=== PATIENT | male | born 1955 | race Caucasian/White ===

== ENCOUNTER 2020-03-27 18:42 | Inpatient (IN) | payer BC, OTHER ==
[2020-03-27] MEDS ORDERED: cefTRIAXone IN SWFI 1,000 MG/10 ML SYRINGE IVP STA (19:11)
[2020-03-27] MEDS ORDERED: SODIUM CHLORIDE 0.9% 500 ML 500 ML IV STA (19:11)
[2020-03-27] MEDS ORDERED: ACETAMINOPHEN TAB 500 MG TAB PO STA (19:13)
--- NOTE | 2020-03-27 19:18 | ED ---
General Adult HPI - General Chief complaint: Skin/Abscess/Foreign Body Stated complaint: cellulitis Time Seen by Provider: 03/27/20 19:02 Source: patient, RN notes reviewed Mode of arrival: ambulatory Limitations: no limitations - History of Present Illness Initial comments: 64-year-old male with a past medical history of cellulitis, diabetes mellitus p resents to the emergency room for a chief complaint of left leg swelling. Patient states he has redness and swelling that he is noticed to the left leg. States he noticed this yesterday when he was standing in his leg felt heavy her than normal. Patient states it reminds him of a previous bout of cellulitis that he required admission for. Patient reports that he has also done 3 different 6-7 [address] drives in the past week as he just moved to the area.he denies any history of DVT. He denies any shortness of breath. Denies any chest pain. Patient does admit to having a history of IDDM. Patient has no other complaints at this time including shortness of breath, chest pain, abdominal pain, nausea or vomiting, headache, or visual changes. - Related Data Allergies Allergy/AdvReac Type Severity Reaction Status Date / Time No Known Allergies Allergy Verified 03/27/20 21:38 Review of Systems ROS Statement: Those systems with pertinent positive or pertinent negative responses have been documented in the HPI. ROS Other: All systems not noted in ROS Statement are negative. Past Medical History Past Medical History: Diabetes Mellitus Additional Past Medical History / Comment(s): lt cellulitis History of Any Multi-Drug Resistant Organisms: None Reported Past Surgical History: Joint Replacement Additional Past Surgical History / Comment(s): channing hip 09/24, carpal tunnel Past Psychological History: No Psychological Hx Reported Smoking Status: Never smoker Past Alcohol Use History: None Reported Past Drug Use History: None Reported General Exam Limitations: no limitations General appearance: alert, in no apparent distress Head exam: Present: atraumatic, normocephalic, normal inspection Eye exam: Present: normal appearance, PERRL, EOMI. Absent: scleral icterus, conjunctival injection, periorbital swelling ENT exam: Present: normal exam, mucous membranes moist Neck exam: Present: normal inspection, full ROM Respiratory exam: Present: normal lung sounds bilaterally. Absent: respiratory distress, wheezes, rales, rhonchi, stridor Cardiovascular Exam: Present: regular rate, normal rhythm, normal heart sounds. Absent: systolic murmur, diastolic murmur, rubs, gallop, clicks GI/Abdominal exam: Present: soft, normal bowel sounds. Absent: distended, tenderness, guarding, rebound, rigid Extremities exam: Present: other (Patient has erythema and edema noted to the left lower leg extending from the ankle up to the proximal tib-fib area. It is warm to touch. DP pulses 2+. Capillary refills less than 2 seconds. Sensation is intact.) Course Vital Signs 03/27/20 03/27/20 03/27/20 18:50 20:51 21:22 Temperature 100.4 F H 98.9 F Pulse Rate 108 H 90 Respiratory 20 18 Rate Blood Pressure 145/86 120/84 O2 Sat by Pulse 96 96 Oximetry Medical Decision Making - Medical Decision Making Patient febrile with a fever of 100.4. Tachycardic 108. Patient has a very erythematous edematous left lower leg. Neurovascular status is intact. CBC unremarkable. However CRP is elevated at 85. Patient is dehydrated and hyperglycemic. He does take insulin at home. X-ray of the tib-fib is negative. No evidence of blood clot on ultrasound. Patient very concerned that the last time he had this oral antibiotics did not work and he required admission with IV antibiotics for several days. At this time given fever and diabetes patient will be admitted. - Lab Data Result diagrams: 03/27/20 19:30 03/27/20 19:30 Lab Results 03/27/20 03/27/20 03/27/20 Range/Units 19:30 19:30 19:30 WBC 5.2 (3.8-10.6) k/uL RBC 5.23 (4.30-5.90) m/uL Hgb 13.9 (13.0-17.5) gm/dL Hct 42.0 (39.0-53.0) % MCV 80.4 (80.0-100.0) fL MCH 26.7 (25.0-35.0) pg MCHC 33.2 (31.0-37.0) g/dL RDW 12.6 (11.5-15.5) % Plt Count 272 (150-450) k/uL Neutrophils % (Manual) 66 % Lymphocytes % (Manual) 25 % Monocytes % (Manual) 8 % Eosinophils % (Manual) 1 % Neutrophils # (Manual) 3.43 (1.3-7.7) k/uL Lymphocytes # (Manual) 1.30 (1.0-4.8) k/uL Monocytes # (Manual) 0.42 (0-1.0) k/uL Eosinophils # (Manual) 0.05 (0-0.7) k/uL Nucleated RBCs 0 (0-0) /100 WBC Manual Slide Review Performed Sodium 132 L (137-145) mmol/L Potassium 4.0 (3.5-5.1) mmol/L Chloride 100 (98-107) mmol/L Carbon Dioxide 21 L (22-30) mmol/L Anion Gap 11 mmol/L BUN 24 H (9-20) mg/dL Creatinine 1.02 (0.66-1.25) mg/dL Est GFR (CKD-EPI)AfAm >90 (>60 ml/min/1.73 sqM) Est GFR (CKD-EPI)NonAf 78 (>60 ml/min/1.73 sqM) Glucose 362 H (74-99) mg/dL Plasma Lactic Acid Shan 2.0 (0.7-2.0) mmol/L Calcium 9.1 (8.4-10.2) mg/dL Total Bilirubin 0.5 (0.2-1.3) mg/dL AST 75 H (17-59) U/L ALT 57 H (4-49) U/L Alkaline Phosphatase 76 (38-126) U/L C-Reactive Protein 85.9 H (<10.0) mg/L Total Protein 6.6 (6.3-8.2) g/dL Albumin 3.9 (3.5-5.0) g/dL Disposition Clinical Impression: Cellulitis Disposition: ADMITTED IP TO THIS HOSP Is patient prescribed a controlled substance at d/c from ED?: No Referrals: None,Stated [Primary Care Provider] - 1-2 days Time of Disposition: 21:41
[2020-03-27 20:06] LABS: ALT 57 U/L (4-49); AST 75 U/L (17-59); African American GFR (CKD) >90 (>60 ml/min/1.73 sqM); Albumin 3.9 g/dL (3.5-5.0); Alkaline Phosphatase 76 U/L (38-126); Anion Gap 11 mmol/L; Blood Urea Nitrogen 24 mg/dL (9-20); C Reactive Protein 85.9 mg/L (<10.0); Calcium 9.1 mg/dL (8.4-10.2); Carbon Dioxide 21 mmol/L (22-30); Chloride 100 mmol/L (98-107); Glucose 362 mg/dL (74-99); Non-African American GFR(CKD) 78 (>60 ml/min/1.73 sqM); Sodium 132 mmol/L (137-145); Total Bilirubin 0.5 mg/dL (0.2-1.3); Total Protein 6.6 g/dL (6.3-8.2)
[2020-03-27 20:09] LABS: HGB 13.9 gm/dL (13.0-17.5); MCH 26.7 pg (25.0-35.0); MCHC 33.2 g/dL (31.0-37.0); MCV 80.4 fL (80.0-100.0); Platelet Count 272 k/uL (150-450); RBC 5.23 m/uL (4.30-5.90); RDW 12.6 % (11.5-15.5); WBC 5.2 k/uL (3.8-10.6)
[2020-03-27] MEDS ORDERED: SODIUM CHLORIDE 0.9% 1,000 ML IV STA (20:18)
--- NOTE | 2020-03-27 20:44 | XR ---
EXAMINATION TYPE: XR tibia fibula LT DATE OF EXAM: 03/27/2020 CLINICAL HISTORY: Left lower leg edema. TECHNIQUE: Two views of the left tibia and fibula are obtained. COMPARISON: None. FINDINGS: There is no acute fracture or dislocation seen in the left tibia or fibula. The knee and a nkle joints appear within normal limits. There is subcutaneous edema of the left lower extremity diff usely. Normal osseous mineralization. IMPRESSION: No acute osseous abnormality of the left tibia or fibula. Diffuse subcutaneous edema.
[2020-03-27 20:52] LABS: Eosinophils # (M) 0.05 k/uL (0-0.7); Monocytes # (M) 0.42 k/uL (0-1.0); Neutrophils # (M) 3.43 k/uL (1.3-7.7); Neutrophils % (M) 66 %; Nucleated Red Blood Cells 0 /100 WBC (0-0); Total Cells Counted 100
--- NOTE | 2020-03-27 21:19 | US ---
EXAMINATION TYPE: US venous doppler duplex LE LT DATE OF EXAM: 03/27/2020 8:48 PM COMPARISON: NONE CLINICAL HISTORY: edema. Edema x 2 days. No hx of DVT. Patient does not take blood thinners. SIDE PERFORMED: Left TECHNIQUE: The lower extremity deep venous system is examined utilizing real time linear array sonog gonzalo with graded compression, doppler sonography and color-flow sonography. VESSELS IMAGED: Common Femoral Vein Deep Femoral Vein Greater Saphenous Vein * Femoral Vein Popliteal Vein Small Saphenous Vein * Proximal Calf Veins (* superficial vessels) Left Leg: Somewhat suboptimal exam due to edema and patient body habitus. No evidence of DVT in vein s imaged at this time from proximal calf veins to CFV/GSV. EIV not visualized. IMPRESSION: No evidence of DVT of the left lower extremity.
[2020-03-27] MEDS ORDERED: NALOXONE 0.4 MG/ML 1 ML VIAL IV PRN (21:37)
[2020-03-27] MEDS ORDERED: ACETAMINOPHEN TAB 325 MG TAB PO PRN (21:37)
[2020-03-27] MEDS ORDERED: VANCOMYCIN IV PER PHARMACY 1 EACH MISC MISCELLANE PRN (21:39)
[2020-03-27] MEDS ORDERED: VANCOMYCIN 2,000 MG in SODIUM CHLORIDE 0.9% 500 ML 500 ML IVPB STA (21:43)
[2020-03-27] MEDS: SODIUM CHLORIDE 0.9% 1,000 ML IV SCH (22:59)
[2020-03-28] MEDS ORDERED: IBUPROFEN 200 MG TAB PO PRN (00:24)
--- NOTE | 2020-03-28 00:39 | P.HPIM ---
History of Present Illness H&P Date: 03/28/20 Chief Complaint: left leg swelling and reddness 64 year with IDDM , obesity patient comes in with 2 day history of left leg swelling, and today he noticed reddness and heaviness, with tenderness and warmth to the touch compared to the other leg, he has history of cellulitis in the past, denies any fever chills, denies any chest pain or trouble breathing, he deniies any history of DVT, he denies any active diagnosis of cancer or recent hospitalization or immobilization he denies any injury or itching. but he does report recent long car rides multiple times between [facility] and [place] over the past week due to relocation. however, he was stopping to walk every 2 hours during these 7 hours rides,. in the ED, venous duplex US did not show any acute DVT, patient admitted for acute cellulitis due to fever, for IV antibiotics and monitoring Review of Systems Pertinent positives as noted in HPI. All other systems were reviewed and are negative Past Medical History Past Medical History: Diabetes Mellitus Additional Past Medical History / Comment(s): lt cellulitis History of Any Multi-Drug Resistant Organisms: None Reported Past Surgical History: Joint Replacement Additional Past Surgical History / Comment(s): channing hip 09/24, carpal tunnel Past Psychological History: No Psychological Hx Reported Smoking Status: Never smoker Past Alcohol Use History: None Reported Past Drug Use History: None Reported - Past Family History Family Family Medical History: Diabetes Mellitus Medications and Allergies Home Medications Medication Instructions Recorded Confirmed Type Ferrous Sulfate [Feosol] 325 mg PO BID 03/27/20 03/27/20 History Ibuprofen [Motrin Ib] 600 mg PO Q8H PRN 03/27/20 03/27/20 History Insulin Glargine,Hum.rec.anlog See Protocol SQ DAILY PRN 03/27/20 03/27/20 Hi story [Basaglar Kwikpen U-100] Multivitamins, Thera [Multivitamin 1 tab PO DAILY 03/27/20 03/27/20 History (formulary)] Naproxen Sod/Diphenhydramine 1 tab PO DAILY PRN 03/27/20 03/27/20 History [Aleve Pm Caplet] Sildenafil Citrate [Sildenafil] 20 - 100 mg PO DAILY PRN 03/27/20 03/27/20 History Simvastatin [Zocor] 80 mg PO HS 03/27/20 03/27/20 History Tamsulosin HCl [Flomax] 0.4 mg PO HS 03/27/20 03/27/20 History diphenhydrAMINE [Benadryl] 50 mg PO HS 03/27/20 03/27/20 History metFORMIN HCL [Glucophage] 1,000 mg PO BID 03/27/20 03/27/20 History Allergies Allergy/AdvReac Type Severity Reaction Status Date / Time No Known Allergies Allergy Verified 03/27/20 21:38 Physical Exam Vitals: Vital Signs Temp Pulse Resp BP Pulse Ox 03/27/20 23:06 80 18 143/90 96 03/27/20 21:22 98.9 F 03/27/20 20:51 90 18 120/84 96 03/27/20 18:50 100.4 F H 108 H 20 145/86 96 Intake and Output 03/27/20 03/27/20 03/28/20 14:59 22:59 06:59 Other: Weight 148.778 kg Constitutional: No acute distress, conversant, pleasant Eyes: Anicteric sclerae, moist conjunctiva, Pupils equal round reactive to light ENMT: NC/AT Oropharynx clear, no erythema, or exudates Neck: Supple, FROM, no masses, or JVD No carotid bruits No thyromegaly Lungs: Clear to auscultation Clear to percussion Normal respiratory effort, no accessory muscle use Cardiovascular: Heart regular in rate and rhythm, No murmurs, gallops, or rubs unilateral swelling of the left leg Abdominal: Soft Nontender, no guarding, rebound or rigidity Abdomen moving with respiration Normoactive bowel sounds No hepatomegaly, No splenomegaly No palpable mass No abdominal wall hernia noted Skin: Normal temperature, tone, texture, turgor No induration No subcutaneous nodules No rash, lesions No ulcers Extremities: Edema and tenderness to palpation of the left leg with erythema extending from below the knee all the way to above the ankle no open wounds or cuts, no drainage No digital cyanosis No clubbing Pedal pulses intact and symmetrical Radial pulses intact and symmetrical No calf tenderness Psychiatric: Alert and oriented to person, place and time Appropriate affect fair judgement Neuro Muscles Strength 5/5 in all 4 extremities Sensation to light touch grossly present throughout Cranial nerves II-XII grossly intact No focal sensory deficits Lymphatics: no palpable cervical or supraclavicular , or inguinal lymph nodes Results CBC & Chem 7: 03/27/20 19:30 03/27/20 19:30 Labs: Abnormal Lab Results - Last 24 Hours (Table) 03/27/20 Range/Units 19:30 Sodium 132 L (137-145) mmol/L Carbon Dioxide 21 L (22-30) mmol/L BUN 24 H (9-20) mg/dL Glucose 362 H (74-99) mg/dL AST 75 H (17-59) U/L ALT 57 H (4-49) U/L C-Reactive Protein 85.9 H (<10.0) mg/L Assessment and Plan Assessment: Acute cellulitis of the left leg Follow-up blood cultures Tylenol for fever Pain control Vancomycin Monitor vital signs Erythema margins was marked for progression or recession Diabetes mellitus with hyperglycemia Insulin sliding scale Check A1c Obesity Intentional weight loss patient following dietary program and exercise CODE STATUS: Full code DVT prophylaxis: Heparin subcu 3 times a day Discussed with: Patient, ER, RN Anticipated length of stay more than [address]: Home A total of 75 minutes was spent on the care of this complex patient more than 50% of the time was spent in counseling and care coordination.
[2020-03-28 01:14] LABS: Glucose,Whole Blood 257 mg/dL (75-99)
[2020-03-28] MEDS: TAMSULOSIN 0.4 MG CAP.ER.24H PO SCH ×2 (01:49→20:27)
[2020-03-28] MEDS: diphenhydrAMINE 25 MG CAP PO SCH ×2 (01:49→20:27)
[2020-03-28] MEDS: INSULIN ASPART (NovoLOG) 100 UNIT/ML VIAL SQ SCH ×5 (01:49→20:27)
[2020-03-28] MEDS: ATORVASTATIN 40 MG TAB PO SCH ×2 (01:49→20:27)
[2020-03-28 06:55] LABS: HCT 38.8 % (39.0-53.0); HGB 12.7 gm/dL (13.0-17.5); MCH 27.5 pg (25.0-35.0); MCHC 32.8 g/dL (31.0-37.0); MCV 83.8 fL (80.0-100.0); Mean Platelet Volume 7.9; Platelet Count 233 k/uL (150-450); RBC 4.63 m/uL (4.30-5.90); RDW 12.7 % (11.5-15.5); WBC 4.7 k/uL (3.8-10.6)
[2020-03-28 07:36] LABS: Glucose,Whole Blood 173 mg/dL (75-99)
[2020-03-28] MEDS: HEPARIN SODIUM,PORCINE 5,000 UNIT/ML 1 ML VIAL SQ SCH ×3 (07:41→23:21)
[2020-03-28] MEDS: SODIUM CHLORIDE 0.9% 1,000 ML IV SCH ×2 (07:48→17:24)
[2020-03-28 09:00] LABS: Eosinophils # (M) 0.19 k/uL (0-0.7); Lymphocytes # (M) 1.18 k/uL (1.0-4.8); Monocytes # (M) 0.61 k/uL (0-1.0); Neutrophils # (M) 2.73 k/uL (1.3-7.7); Neutrophils % (M) 58 %; Nucleated Red Blood Cells 0 /100 WBC (0-0); Total Cells Counted 100
[2020-03-28] MEDS ORDERED: cefTRIAXone IN SWFI 1,000 MG/10 ML SYRINGE IVP SCH (09:00)
[2020-03-28 09:54] LABS: Anion Gap 9.1 mmol/L (4.00-12.00); BUN/Creat Ratio 22.22 Ratio (12.00-20.00); Calcium 8.3 mg/dL (8.7-10.3); Carbon Dioxide 23.9 mmol/L (21.6-31.8); Non-African American GFR(CKD) 90.6 (60.0-200.0); Potassium 3.8 mmol/L (3.5-5.5)
[2020-03-28 10:46] LABS: Hemoglobin A1C 11.1 % (4.0-6.0)
[2020-03-28] MEDS ORDERED: VANCOMYCIN 2,000 MG in SODIUM CHLORIDE 0.9% 500 ML 500 ML IVPB SCH (11:00)
[2020-03-28 11:40] LABS: Glucose,Whole Blood 214 mg/dL (75-99)
--- NOTE | 2020-03-28 17:02 | P.PN ---
Progress Note - Text Progress Note Date: 03/28/20 Patient was seen. Patient reports continued erythema and swelling in his left lower extremity. He will be continued on vancomycin dosed per pharmacy. Infectious disease has been consulted. He is pending clinical improvement.
[2020-03-28 17:05] LABS: Glucose,Whole Blood 229 mg/dL (75-99)
[2020-03-28 20:02] VITALS: RESP 16
[2020-03-28 20:16] LABS: Glucose,Whole Blood 230 mg/dL (75-99)
--- NOTE | 2020-03-28 23:07 | P.CONS ---
History of Present Illness - Reason for Consult Consult date: 03/28/20 Left lower extremity cellulitis Requesting physician: Linda Montague - Chief Complaint Left leg pain swelling and redness x 2 days - History of Present Illness Patient is a 64-year-old male presenting to the ER at [facility] yesterday in the evening with concern for increasing pain swelling redness to the left lower extremity that has been going on for about 2 days before presentation hospital, patient mentioned diffuse swelling and redness to the left leg that has progressively increased over the last 2 days, patient did complain of pain to the left and more of a dull aching pain intensity is about 5-6 out of 10 and no radiation worse with walking, patient currently do not have any blisters or open wound to the leg has been complaining of some fever and chills. The symptoms the patient presented to the hospital on arrival to the ER the patient did have a low-grade fever 100.4 the patient did have a normal white count patient did have a Doppler ultrasound left leg which was negative for DVT axis were negative for any bony changes patient had been started on vancomycin and admitted to the hospital infectious disease was consulted for further management of antibiotic therapy Review of Systems Positive point has been mentioned in the HPI rest of the systems are negative Past Medical History Past Medical History: Diabetes Mellitus Additional Past Medical History / Comment(s): lt cellulitis History of Any Multi-Drug Resistant Organisms: None Reported Past Surgical History: Joint Replacement Additional Past Surgical History / Comment(s): channing hip 09/24, carpal tunnel Past Anesthesia/Blood Transfusion Reactions: No Reported Reaction Past Psychological History: No Psychological Hx Reported Smoking Status: Never smoker Past Alcohol Use History: None Reported Past Drug Use History: None Reported - Past Family History Father Family Medical History: Cancer, Deep Vein Thrombosis (DVT), Myocardial Infarction ([place]) Additional Family Medical History / Comment(s): throat cancer Mother Family Medical History: COPD Family Family Medical History: Diabetes Mellitus Medications and Allergies Home Medications Medication Instructions Recorded Confirmed Type Ferrous Sulfate [Feosol] 325 mg PO BID 03/27/20 03/27/20 History Ibuprofen [Motrin Ib] 600 mg PO Q8H PRN 03/27/20 03/27/20 History Insulin Glargine,Hum.rec.anlog See Protocol SQ DAILY PRN 03/27/20 03/27/20 History [Gradyaglmagdalena De Santiagopen U-100] Multivitamins, Thera [Multivitamin 1 tab PO DAILY 03/27/20 03/27/20 History (formulary)] Naproxen Sod/Diphenhydramine 1 tab PO DAILY PRN 03/27/20 03/27/20 History [Aleve Pm Caplet] Sildenafil Citrate [Sildenafil] 20 - 100 mg PO DAILY PRN 03/27/20 03/27/20 History Simvastatin [Zocor] 80 mg PO HS 03/27/20 03/27/20 History Tamsulosin HCl [Flomax] 0.4 mg PO HS 03/27/20 03/27/20 History diphenhydrAMINE [Benadryl] 50 mg PO HS 03/27/20 03/27/20 History metFORMIN HCL [Glucophage] 1,000 mg PO BID 03/27/20 03/27/20 History Allergies Allergy/AdvReac Type Severity Reaction Status Date / Time No Known Allergies Allergy Verified 03/27/20 21:38 Physical Exam Vitals: Vital Signs Temp Pulse Pulse Resp BP BP Pulse Ox 03/28/20 18:58 98.7 F 76 16 113/96 98 03/28/20 16:00 18 03/28/20 15:00 98.4 F 70 16 126/75 97 03/28/20 08:30 16 03/28/20 07:00 99.1 F 75 16 124/74 97 03/28/20 04:10 18 03/28/20 00:11 18 03/27/20 23:30 98.0 F 81 17 126/82 95 03/27/20 23:06 80 18 143/90 96 Intake and Output 03/28/20 03/28/20 03/28/20 06:59 14:59 22:59 Intake Total 900 250 Balance 900 250 Intake: Intake, IV Titration 500 Amount Vancomycin 2,000 mg In 500 Sodium Chloride 0.9% 500 ml 500 ml @ 167 mls/hr IVPB Q12H [facility] Rx#: [id number] Oral 400 250 Other: Voiding Method Toilet Toilet Toilet # Voids 1 1 Weight 148.778 kg GENERAL DESCRIPTION: Middle-aged male lying in bed, no distress. No tachypnea or accessory muscle of respiration use. HEENT: Shows Pallor , no scleral icterus. Oral mucous membrane is dry. No pharyngeal erythema or thrush NECK: Trachea central, no thyromegaly. LUNGS: Unlabored breathing. Clear to auscultation anteriorly. No wheeze or crackle. HEART: S1, S2, regular rate and rhythm. No loud murmur ABDOMEN: Soft, no tenderness , guarding or rigidity, no organomegaly EXTREMITIES: Left lower extremity with diffuse swelling redness slightly warm to touch no skin breakdown or drainage SKIN: No rash, no masses palpable. NEUROLOGICAL: The patient is awake, alert, oriented x3, mood and affect normal. Results CBC & Chem 7: 03/28/20 06:32 03/28/20 06:32 Labs: Abnormal Lab Results - Last 24 Hours (Table) 03/28/20 03/28/20 03/28/20 Range/Units 01:12 06:32 06:32 Hgb 12.7 L (13.0-17.5) gm/dL Hct 38.8 L (39.0-53.0) % BUN/Creatinine Ratio 22.22 H (12.00-20.00) Ratio Glucose 194 H (70-110) mg/dL POC Glucose (mg/dL) 257 H (75-99) mg/dL Hemoglobin A1c (4.0-6.0) % Calcium 8.3 L (8.7-10.3) mg/dL 03/28/20 03/28/20 03/28/20 Range/Units 06:32 07:27 11:37 Hgb (13.0-17.5) gm/dL Hct (39.0-53.0) % BUN/Creatinine Ratio (12.00-20.00) Ratio Glucose (70-110) mg/dL POC Glucose (mg/dL) 173 H 214 H (75-99) mg/dL Hemoglobin A1c 11.1 H (4.0-6.0) % Calcium (8.7-10.3) mg/dL 03/28/20 03/28/20 Range/Units 17:03 20:14 Hgb (13.0-17.5) gm/dL Hct (39.0-53.0) % BUN/Creatinine Ratio (12.00-20.00) Ratio Glucose (70-110) mg/dL POC Glucose (mg/dL) 229 H 230 H (75-99) mg/dL Hemoglobin A1c (4.0-6.0) % Calcium (8.7-10.3) mg/dL Microbiology - Last 24 Hours (Table) 03/27/20 19:30 Blood Culture - Preliminary Blood No Growth after 24 hours Assessment and Plan Assessment: 1- patient presented to hospital with acute left lower extremity cellulitis in this patient did have diffuse swelling redness and evidence of athlete's foot likely streptococcal cellulitis clinically doubt MRSA or gram-negative infection (1) Left leg cellulitis Current Visit: Yes Status: Acute Code(s): L03.116 - CELLULITIS OF LEFT LOWER LIMB SNOMED Code(s): 869053501 Plan: 1- discontinue the vancomycin 2- start patient cefazolin 2 g every 8 hours 3- marked the area of the redness and Kali wrap to the left leg from Just above the toe to below the knee We will follow on clinical condition and cultures to further adjust medication if needed Thank you for this consultation will follow this patient with you Time with Patient: Greater than 30
[2020-03-29] MEDS: SODIUM CHLORIDE 0.9% 1,000 ML IV SCH (05:35)
[2020-03-29 07:30] LABS: Glucose,Whole Blood 211 mg/dL (75-99)
[2020-03-29] MEDS: HEPARIN SODIUM,PORCINE 5,000 UNIT/ML 1 ML VIAL SQ SCH (07:50)
[2020-03-29] MEDS: INSULIN ASPART (NovoLOG) 100 UNIT/ML VIAL SQ SCH ×2 (07:50→12:52)
[2020-03-29 08:10] VITALS: BP 134/87; PULSE 81; TEMP 98.7
[2020-03-29 10:09] LABS: African American GFR (CKD) 110.2 (60.0-200.0); Non-African American GFR(CKD) 95.1 (60.0-200.0)
[2020-03-29 11:28] VITALS: BMI 44.4
[2020-03-29 11:44] LABS: Glucose,Whole Blood 259 mg/dL (75-99)
--- NOTE | 2020-03-29 14:22 | P.DS ---
Providers Date of admission: 03/27/20 21:24 Expected date of discharge: 03/29/20 Attending physician: Jael Newsome DO Consults: 03/28/20 10:01 Consult Physician Routine Consulting Provider: Abiola Card Consult Reason/Comments: cellulitis Do you want consulting provider notified?: Yes Primary care physician: Stated None Hospital Course: 64 year with IDDM , obesity patient comes in with 2 day history of left leg swelling, and today he noticed reddness and heaviness, with tenderness and warmth to the touch compared to the other leg, he has history of cellulitis in the past, denies any fever chills, denies any chest pain or trouble breathing, he deniies any history of DVT, he denies any active diagnosis of cancer or recent hospitalization or immobilization he denies any injury or itching. but he does report recent long car rides multiple times between [facility] and [place] over the past week due to relocation. however, he was stopping to walk every 2 hours during these 7 hours rides. In the ED, venous duplex US did not show any acute DVT, patient admitted for acute cellulitis due to fever, for IV antibiotics and monitoring Patient started on vancomycin and infectious disease was consulted. He was transitioned to cefazolin. Infectious disease recommended Keflex for 10 days. He was treated with insulin sliding scale for his history of diabetes mellitus. Patient was seen and examined this morning. No acute events overnight. Patient reports improvement in his erythema and left lower extremity swelling. He denies any chest pain, shortness breath or palpitations. No nausea or vomiting. No fever or chills. General: [non toxic], [no distress], [appears at stated age] Derm: [warm], [dry] Head: [atraumatic], [normocephalic], [symmetric] Eyes: [EOMI], [no lid lag], [anicteric sclera] Mouth: [no lip lesion], [mucus membranes moist] Cardiovascular: [S1S2 reg], [no murmur], [positive posterior tibial pulse bilateral], Lungs: [CTA bilateral], [no rhonchi, no rales] , [no accessory muscle use] Abdominal: [soft], [ nontender to palpation], [no guarding], [no appreciable organomegaly] Ext: [no gross muscle atrophy], [no edema], [no contractures], erythema of the left lower extremity, improved from yesterday Neuro: [no focal neuro deficits] Psych: [Alert], [oriented], [appropriate affect] Acute cellulitis of the left leg Diabetes mellitus with hyperglycemia Transaminitis Morbid obesity with BMI 44.5 Resolved: Hyponatremia, elevated BUN, metabolic acidosis Patient's erythema has improved and he has been cleared by infectious disease for discharge home on Keflex. His A1c is 11.1. He will need to follow-up with his PCP for further adjustment of his oral hypoglycemics and insulin. His elevated liver enzymes are likely diet related. Patient will need to follow-up with his PCP for further workup and management. Patient would benefit from a structured weight loss program. This complex discharge took about 35 minutes to complete. Pertinent Studies: tibia x-ray, venous Doppler Patient Condition at Discharge: Stable Plan - Discharge Summary Discharge Rx Participant: Yes New Discharge Prescriptions: New Cephalexin [Keflex] 500 mg PO Q6HR 10 Days #40 cap Continue Ibuprofen [Motrin Ib] 600 mg PO Q8H PRN PRN Reason: Pain diphenhydrAMINE [Benadryl] 50 mg PO HS Naproxen Sod/Diphenhydramine [Aleve Pm Caplet] 1 tab PO DAILY PRN PRN Reason: SLEEP OR PAIN Multivitamins, Thera [Multivitamin (formulary)] 1 tab PO DAILY Tamsulosin HCl [Flomax] 0.4 mg PO HS Simvastatin [Zocor] 80 mg PO HS Sildenafil Citrate 20 - 100 mg PO DAILY PRN PRN Reason: E.D. Ferrous Sulfate [Iron (65 MG Elemental)] 325 mg PO BID metFORMIN HCL [Glucophage] 1,000 mg PO BID Insulin Glargine,Hum.rec.anlog [Basaglar Kwikpen U-100] See Protocol SQ DAILY PRN PRN Reason: HIGH SUGAR Discharge Medication List Ferrous Sulfate [Iron (65 MG Elemental)] 325 mg PO BID 03/27/20 [History] Ibuprofen [Motrin Ib] 600 mg PO Q8H PRN 03/27/20 [History] Insulin Glargine,Hum.rec.anlog [Basaglar Kwikpen U-100] See Protocol SQ DAILY PRN 03/27/20 [History] Multivitamins, Thera [Multivitamin (formulary)] 1 tab PO DAILY 03/27/20 [History] Naproxen Sod/Diphenhydramine [Aleve Pm Caplet] 1 tab PO DAILY PRN 03/27/20 [History] Sildenafil Citrate 20 - 100 mg PO DAILY PRN 03/27/20 [History] Simvastatin [Zocor] 80 mg PO HS 03/27/20 [History] Tamsulosin HCl [Flomax] 0.4 mg PO HS 03/27/20 [History] diphenhydrAMINE [Benadryl] 50 mg PO HS 03/27/20 [History] metFORMIN HCL [Glucophage] 1,000 mg PO BID 03/27/20 [History] Cephalexin [Keflex] 500 mg PO Q6HR 10 Days #40 cap 03/29/20 [Rx] Follow up Appointment(s)/Referral(s): None,Stated [Primary Care Provider] - 1-2 days Abiola Card MD [STAFF PHYSICIAN] - 1 Week Activity/Diet/Wound Care/Special Instructions: Diet: Diabetic FU PCP within 3 days of DC. FU Infectious disease within 1 week. Take all meds as advised. Come back to the ED or call 911 for worsening erythema, Fever > 100.4F, chest pain, SOB or palpitations, dizziness. Discharge Disposition: HOME SELF-CARE
--- NOTE | 2020-03-29 14:34 | PN ---
PROGRESS NOTE DATE OF SERVICE: 03/29/2020 REASON FOR FOLLOWUP: Left lower extremity cellulitis. INTERVAL HISTORY: The patient is currently afebrile. The patient is feeling better. Breathing comfortably. Denies having any chest pain. No shortness of breath or cough. No nausea, no vomiting, no abdominal pain. Left leg swelling. PHYSICAL EXAMINATION: Blood pressure 134/87 with a pulse of 81, temperature 98.7. The patient is a middle- aged male, lying in bed in no distress. RESPIRATORY SYSTEM: Unlabored breathing, clear to auscultation anteriorly. HEART: S1, S2. Regular rate and rhythm. ABDOMEN: Soft, no tenderness. Left leg swelling and redness has improved. LABS: Blood culture negative. Creatinine 0.8. DIAGNOSTIC IMPRESSION AND PLAN: Patient acute left lower extremity cellulitis with diffuse tenderness. The patient has shown overall clinical improvement with cefazolin and wants to go home. Antibiotic was switched over to Keflex 500 mg p.o. q.6 hours for 10 days. Advised to continue with compression stocking and close outpatient followup. MMODL / IJN: [id number] /
== END 2020-03-29 15:23 | disposition home or self-care (01) | DRG 603 ==
LOC: EC 18:42 → 4SSUR 21:24
PROVIDERS: ADMIT Internal Medicine; ATTEND Internal Medicine
DX: L03.116 Cellulitis of left lower limb (principal); E87.2 Acidosis; E87.1 Hypo-osmolality and hyponatremia; Z68.41 Body mass index [BMI] 40.0-44.9, adult; E11.65 Type 2 diabetes mellitus with hyperglycemia; E66.01 Morbid (severe) obesity due to excess calories; Z79.4 Long term (current) use of insulin; R00.0 Tachycardia, unspecified; E86.0 Dehydration; B35.3 Tinea pedis; B95.5 Unspecified streptococcus as the cause of diseases classified elsewhere; Z79.899 Other long term (current) drug therapy; Z96.643 Presence of artificial hip joint, bilateral; Z98.890 Other specified postprocedural states; Z82.49 Family history of ischemic heart disease and other diseases of the circulatory system; Z80.8 Family history of malignant neoplasm of other organs or systems; Z83.3 Family history of diabetes mellitus; Z82.5 Family history of asthma and other chronic lower respiratory diseases
CPT/HCPCS: 36415; 80048; 80053; 82565; 83036; 83605; 85025; 86140; 87040; 96361; 96365; 96375; 99285

== ENCOUNTER → 2021-11-25 | Outpatient (CLI) | payer MEDICARE, BC | LOC: CPPFTMAIN 07:14 | PROVIDERS: ATTEND Family Medicine | DX: R06.00 Dyspnea, unspecified (principal); E66.9 Obesity, unspecified | CPT/HCPCS: 94060; 94726; 94729 ==

== ENCOUNTER → 2023-01-28 | Outpatient (CLI) | payer MEDICARE, BC ==
--- NOTE | 2023-01-28 15:26 | P.SLEEP ---
History of Present Illness DATE: 01/28/2023 CONSULTATION/NEW PATIENT EVALUATION HISTORY OF PRESENT ILLNESS/SLEEP-WAKE EVALUATION: 67 year old gentleman had been evaluated in the sleep center for possible obstructive sleep apnea hypopnea syndrome. SLEEP SCHEDULE: Usually sleep schedule from 10 PM to 56 AM. FALLING ASLEEP: No problems with falling asleep. DURING SLEEP: Patient has snoring and witnessed episodes of stop breathing during the sleep. Patient wakes up from sleep once with nocturia. No history of hypnogogical hallucinations, sleep paralysis, or cataplexy. DURING THE DAY/WAKE STATE: Patient may fill sleepiness during the day. [place] sleepiness scale is 4. Patient may take nap at 1 PM. PAST MEDICAL HISTORY: Hypertension, diabetes mellitus, anemia, BPH, hyperlipidemia. PAST SURGICAL HISTORY: Bilateral hip replacement. MEDICATIONS: Losartan, Flomax, simvastatin 80 mg once a day, metformin 1000 mg twice a day, NovoLog, iron supplement. 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 FAMILY HISTORY: Heart problems, cancer, diabetes. REVIEW OF SYSTEMS: Snoring, awakenings from sleep. No fevers. No double vision. No recent chest pain. No shortness of breath. No abdominal pain. No bleeding episodes. No blood in urine. No seizure episodes. PHYSICAL EXAMINATION: GENERAL: A pleasant patient without any distress. VITAL SIGNS: BP 97/72 , HR 91 , RR 18 , weight 336.4 pounds, height 5 foot 10 and 1/8 inches, body mass index 48.0 . HEENT: PERRLA, EOMI. Evaluation of oropharynx showed tongue protrudes midline, low position of soft palate Mallampati 3, retrognathia millimeters. NECK: Supple. No JVD. Thyroid is not palpable. 20 inches in circumference. LUNGS: Clear to percussion and to auscultation. Good air exchange. No wheezing or rhonchi. HEART: S1, S2 regular. No murmurs, gallops or rubs. ABDOMEN: Soft and nontender. Bowel sounds are present. No organomegaly appreciated. EXTREMITIES: No clubbing or cyanosis, 1+ bilateral leg edema. CELERY STRIPPER: Awake, alert, and oriented x3. Cranial nerves 2 to 7 intact. There is no fasciculation or atrophy noted. No focal deficits observed. ASSESSMENT: 1. Snoring, witnessed episodes of stop breathing during the sleep, low position of soft palate Mallampati 3, extremely wide neck 20 inches in circumference. Obstructive sleep apnea hypopnea syndrome. 2. Obesity, body mass index 48.0. 3. Hypertension. 4. Diabetes mellitus. 5 history of iron deficiency anemia. 6 . BPH. 7. Hyperlipidemia status post bilateral hip replacement. 8. History of work in coal [employer] for 35 years. PLAN: 1. Polysomnography for evaluation of patient's breathing during sleep. 2. CPAP/BiPAP titration if sleep study confirms obstructive sleep apnea- hypopnea syndrome. 3. Preferable position during sleep on the side. 4. No driving if patient feels any sleepiness. Patient is aware of civil and criminal liability for unsafe driving. 5. Sleep hygiene with regular sleep time for at least 7.5-8 hours. 6. Watching and losing weight. Thank you very much for referring this patient for consultation. Sincerely, Devon Gomez MD, PhD, FAASM. Diplomat of [place] [employer], Sleep Medicine Board by [place] [employer] [place] [employer] [facility] Past Medical History Past Medical History: Diabetes Mellitus Additional Past Medical History / Comment(s): lt cellulitis History of Any Multi-Drug Resistant Organisms: None Reported Past Surgical History: Joint Replacement Additional Past Surgical History / Comment(s): channing hip 09/24, carpal tunnel Past Anesthesia/Blood Transfusion Reactions: No Reported Reaction Past Psychological History: No Psychological Hx Reported Smoking Status: Never smoker Past Alcohol Use History: None Reported Past Drug Use History: None Reported - Past Family History Father Family Medical History: Cancer, Deep Vein Thrombosis (DVT), Myocardial Infarction ([place]) Additional Family Medical History / Comment(s): throat cancer Mother Family Medical History: COPD Family Family Medical History: Diabetes Mellitus Medications and Allergies Home Medications Medication Instructions Recorded Confirmed Type Ferrous Sulfate [Iron (65 MG 325 mg PO BID 03/27/20 03/27/20 History Elemental)] Ibuprofen [Motrin Ib] 600 mg PO Q8H PRN 03/27/20 03/27/20 History Insulin Glargine,Hum.[email or web address].anlog See Protocol SQ DAILY PRN 03/27/20 03/27/20 History [Gradyaglmagdalena De Santiagopen U-100] Multivitamins, Thera [Multivitamin 1 tab PO DAILY 03/27/20 03/27/20 History (formulary)] Naproxen Sod/Diphenhydramine 1 tab PO DAILY PRN 03/27/20 03/27/20 History [Aleve Pm Caplet] Sildenafil Citrate 20 - 100 mg PO DAILY PRN 03/27/20 03/27/20 History Simvastatin [Zocor] 80 mg PO HS 03/27/20 03/27/20 History Tamsulosin HCl [Flomax] 0.4 mg PO HS 03/27/20 03/27/20 History diphenhydrAMINE [Benadryl] 50 mg PO HS 03/27/20 03/27/20 History metFORMIN HCL [Glucophage] 1,000 mg PO BID 03/27/20 03/27/20 History cephALEXin [Keflex] 500 mg PO Q6HR 10 Days #40 cap 03/29/20 Rx Allergies Allergy/AdvReac Type Severity Reaction Status Date / Time No Known Allergies Allergy Verified 03/27/20 21:38 Sleep Note - Sleep Note Sleep Note: Temperature: Pulse Rate: Respiratory Rate: Blood Pressure: SpO2: Height: Weight: BMI: Neck Circumference:
== END ==
LOC: 3 N SLEEP 14:17
PROVIDERS: ATTEND Internal Medicine
DX: G47.33 Obstructive sleep apnea (adult) (pediatric) (principal); E66.9 Obesity, unspecified; I10 Essential (primary) hypertension; E11.9 Type 2 diabetes mellitus without complications; D64.9 Anemia, unspecified; N40.0 Benign prostatic hyperplasia without lower urinary tract symptoms; E78.5 Hyperlipidemia, unspecified; Z68.42 Body mass index [BMI] 45.0-49.9, adult; Z96.643 Presence of artificial hip joint, bilateral; Z79.84 Long term (current) use of oral hypoglycemic drugs; Z79.4 Long term (current) use of insulin
CPT/HCPCS: 99211